=== PATIENT | female | born 1995 | race African-American/Black ===

== ENCOUNTER 2016-12-28 14:39 | Emergency (ER) | payer BC, MEDICAID ==
[~2016-12-28] VITALS: Ht 160 cm; Wt 53.0 kg
[2016-12-28 14:40] VITALS: BP 116/71
[2016-12-28] MEDS ORDERED: DEPO (14:44)
== END 2016-12-28 23:00 | disposition left against medical advice (07) ==
LOC: ER 22:54
DX: R07.9 Chest pain, unspecified (principal)
CPT/HCPCS: 93005

== ENCOUNTER 2018-07-19 03:09 | Emergency (ER) | payer BC, MEDICAID ==
[~2018-07-19] VITALS: Ht 160 cm; Wt 55.0 kg
[~2018-07-19 03:09] MED LIST: DEPO
[2018-07-19 03:44] VITALS: BP 125/56
== END 2018-07-19 04:30 | disposition left against medical advice (07) ==
LOC: ER 03:09
DX: R07.9 Chest pain, unspecified (principal); R06.02 Shortness of breath
CPT/HCPCS: 93005; 99283